=== PATIENT | female | born 1965 | race Caucasian/White ===

== ENCOUNTER → 2017-04-05 | Outpatient (CLI) | payer MEDICARE ==
[~2017-04-05] MED LIST: BIOTIN1 MG PO; CYMBALTA60 M1 PO; HAIR VITAMIN PO; KEFLEX500 MG PO; MAGNESIUM500 MG PO; MAXALT10 MG PO; MULTIPLE VITAMI1 TAB PO; NAPROSYN500 MG PO; TOPAMAX100 MG PO; TRAMADOL HCL50 MG PO; ULTRAM50 MG PO; ZOFRAN4 MG PO; ZOLOFT50 MG PO
[2017-04-05 16:54] LABS: BASO % 0.6 % (0.0-1.0); EOS # 0.2 10*3/uL (0.0-0.4); EOS % 2.4 % (1.0-4.0); HEMOGLOBIN 13.5 g/dl (12.0-16.0); LYMPH # 2.5 10*3/uL (1.3-4.4); LYMPH % 34.5 % (27.0-41.0); MEAN CELL VOLUME 90.3 fl (81.0-99.0); MEAN CORPUSCULAR HGB 29.7 pg (27.0-31.0); MEAN CORPUSCULAR HGB CONC 32.9 g/dl (33.0-37.0); MEAN PLATELET VOLUME 8.6 fl (9.6-12.3); MONO # 0.7 10*3/uL (0.1-1.0); MONO % 10.2 % (3.0-9.0); NEUT # 3.8 10*3/uL (2.3-7.9); NEUT % 52.2 % (47.0-73.0); PLATELET COUNT AUTOMATED 292 10*3/uL (130-400); RED BLOOD COUNT 4.54 10*6/uL (4.10-5.10); RED CELL DISTRI WIDTH 12.2 % (0-14.5); WHITE BLOOD COUNT 7.2 10*3/uL (4.8-10.8)
[2017-04-05 17:15] LABS: ALBUMIN 3.5 gm/dl (3.1-4.5); ALKALINE PHOSPHATASE 49 U/L (45-117); BILIRUBIN, DIRECT < 0.1 mg/dL (0.0-0.2); BUN 23 mg/dl (7-24); CHLORIDE 109 mmol/L (98-107); CHOLESTEROL 158 mg/dL (<200); CREATININE 1.01 mg/dL (0.55-1.02); HDL CHOLESTEROL 53 mg/dl (40-60); LDL CHOLESTEROL 77 mg/dL (9-159); POTASSIUM 3.7 mmol/L (3.5-5.1); SGOT/AST 16 IU/L (3-35); SGPT/ALT 21 U/L (12-78); SODIUM 140 mmol/L (136-145); THYROXINE (T4) TOTAL 6.2 ug/dl (4.8-13.9); TOTAL PROTEIN 6.4 gm/dL (6.4-8.2); TRIGLYCERIDES 141 mg/dl (<150); VLDL CHOLESTEROL 28 mg/dL (6-40)
[2017-04-05 17:21] LABS: THYROID STIM HORMONE (HS) 0.866 uIU/ml (0.358-4.75)
== END | disposition home or self-care (01) ==
LOC: LAB 16:34
PROVIDERS: Family Medicine
DX: R63.5 Abnormal weight gain (principal); R53.83 Other fatigue; R79.89 Other specified abnormal findings of blood chemistry

== ENCOUNTER 2017-10-29 14:52 | Emergency (ER) | payer MEDICARE ==
[~2017-10-29] VITALS: Wt 56.7 kg
[2017-10-29] MEDS ORDERED: IMITREX25 M1 PO (14:58)
== END 2017-10-29 17:44 | disposition home or self-care (01) ==
LOC: ED 14:52
DX: G43.909 Migraine, unspecified, not intractable, without status migrainosus (principal); F17.200 Nicotine dependence, unspecified, uncomplicated; Z79.899 Other long term (current) drug therapy

== ENCOUNTER → 2021-03-23 | Outpatient (CLI) | payer OTHER ==
[~2021-03-23] MED LIST changes: +IMITREX25 M1 PO
== END | disposition home or self-care (01) ==
LOC: COVID19 16:46
PROVIDERS: ATTEND Internal Medicine
DX: Z20.822 Contact with and (suspected) exposure to COVID-19 (principal)

== ENCOUNTER → 2022-04-22 | Outpatient (CLI) | payer OTHER ==
[2022-04-24 17:06] LABS: ALTERNARIA ALTERNATA, IGE <0.10 kU/L (Class 0); AMERICAN ELM, IGE <0.10 kU/L (Class 0); ASPERGILLUS FUMIGATU, IGE <0.10 kU/L (Class 0); BERMUDA GRASS, IGE <0.10 kU/L (Class 0); BIRCH, COMMON SILVER IGE <0.10 kU/L (Class 0); CLADOSPORIUM HERBARU, IGE <0.10 kU/L (Class 0); D FARINAE MITE <0.10 kU/L (Class 0); D PTERONYSSINUS <0.10 kU/L (Class 0); DOG DANDER, IGE <0.10 kU/L (Class 0); MAPLE LEAF SYCAMORE, IGE <0.10 kU/L (Class 0); MAPLE/BOX ELDER, IGE <0.10 kU/L (Class 0); MOUSE URINE IGE <0.10 kU/L (Class 0); PENICILLIUM CHRYSOGENUM, IGE <0.10 kU/L (Class 0); ROUGH PIGWEED, IGE <0.10 kU/L (Class 0); SHEEP SORREL (DOCK), IGE <0.10 kU/L (Class 0); SHORT RAGWEED, IGE <0.10 kU/L (Class 0); TIMOTHY, IGE <0.10 kU/L (Class 0); WALNUT TREE, IGE <0.10 kU/L (Class 0); WHITE ASH, IGE <0.10 kU/L (Class 0); WHITE MULBERRY, IGE <0.10 kU/L (Class 0); WHITE OAK, IGE <0.10 kU/L (Class 0)
== END ==
LOC: LAB 14:45
PROVIDERS: ATTEND Specialist
DX: J30.9 Allergic rhinitis, unspecified (principal)

== ENCOUNTER → 2022-05-21 | Outpatient (CLI) | payer OTHER | END | disposition home or self-care (01) | LOC: CT 01:10 | PROVIDERS: ATTEND Specialist | DX: J32.3 Chronic sphenoidal sinusitis (principal); J34.2 Deviated nasal septum; M26.602 Left temporomandibular joint disorder, unspecified ==

== ENCOUNTER 2023-04-17 23:28 | Emergency (ER) | payer OTHER ==
[~2023-04-17] VITALS: Ht 175.2 cm; Wt 72.6 kg
[2023-04-17] MEDS ORDERED: diphenhydrAMINE hydrochloride 50 MG/ML VIAL IM ONE (23:55)
[2023-04-18 00:14] LABS: BASO # 0.1 10*3/uL (0.0-0.1); BASO % 0.6 % (0.0-1.0); EOS # 0.1 10*3/uL (0.0-0.4); EOS % 1.5 % (1.0-4.0); LYMPH # 3.2 10*3/uL (1.3-4.4); LYMPH % 39.7 % (27.0-41.0); MEAN CELL VOLUME 89.8 fl (81.0-99.0); MEAN CORPUSCULAR HGB 29.2 pg (27.0-31.0); MEAN CORPUSCULAR HGB CONC 32.5 g/dl (33.0-37.0); MEAN PLATELET VOLUME 8.6 fl (9.6-12.3); MONO # 0.5 10*3/uL (0.1-1.0); NEUT # 4.2 10*3/uL (2.3-7.9); PLATELET COUNT AUTOMATED 303 10*3/uL (130-400); RED CELL DISTRI WIDTH 11.9 % (0-14.5)
[2023-04-18 00:41] LABS: BUN 18 mg/dl (9-23); CHLORIDE 104 mmol/L (98-107); POTASSIUM 3.8 mmol/L (3.4-5.1)
[2023-04-18] MEDS ORDERED: DEBROX15 ML OT (00:56)
[2023-04-18] MEDS ORDERED: AMOX-CLAV 875-1 EACH PO (00:58)
== END 2023-04-18 01:00 | disposition home or self-care (01) ==
LOC: ED 23:28
PROVIDERS: Internal Medicine
DX: K04.7 Periapical abscess without sinus (principal); H61.22 Impacted cerumen, left ear; F41.9 Anxiety disorder, unspecified; G43.909 Migraine, unspecified, not intractable, without status migrainosus; F32.A Depression, unspecified; Z98.890 Other specified postprocedural states; Z90.710 Acquired absence of both cervix and uterus; Z87.891 Personal history of nicotine dependence

== ENCOUNTER → 2023-10-15 | Outpatient (CLI) | payer MEDICARE ==
[~2023-10-15] MED LIST changes: +AMOX-CLAV 875-1 EACH PO; +DEBROX15 ML OT
== END | disposition home or self-care (01) ==
LOC: ORTHO 00:25
PROVIDERS: ATTEND Orthopaedic Surgery
DX: M79.645 Pain in left finger(s) (principal); M19.042 Primary osteoarthritis, left hand